=== PATIENT | male | born 1980 | race Caucasian/White ===

== ENCOUNTER 2023-03-13 07:51 | Outpatient (CLI) | payer BC, SELFPAY | END 2023-03-13 07:52 | disposition home or self-care (01) | LOC: NFLDREF 14:44 | PROVIDERS: PCP Family Medicine; Referring Provider Family Medicine; Visit Provider Family Medicine | DX: Z00.00 Encounter for general adult medical examination without abnormal findings (principal); Z13.220 Encounter for screening for lipoid disorders; F41.9 Anxiety disorder, unspecified; Z13.9 Encounter for screening, unspecified; Z13.6 Encounter for screening for cardiovascular disorders | CPT/HCPCS: 80053; 80061; 84443 ==

== ENCOUNTER 2023-04-09 07:05 | Outpatient (CLI) | payer BC, SELFPAY ==
--- NOTE | 2023-04-09 07:15 | CRLHL7_ITS ---
For Patients: As a result of the Century Cures Act, medical imaging exams and procedure reports are released immediately into your electronic medical record. You may view this report before your referring provider. If you have questions, please contact your health care provider. INDICATION: right testicular pain COMPARISON: none TECHNIQUE: Park scale imaging was performed of the scrotum. In addition color Doppler and spectral Doppler analysis was performed of the testes. FINDINGS: The testes demonstrate normal arterial and venous blood flow on color Doppler and spectral Doppler analysis. The testes have uniform echogenicity with no evidence of a suspicious mass or area of inflammation. The right testis measures 5.6 x 2.5 x 3.7 cm in size and the left testis measures 5.1 x 2.3 x 3.6 cm. Right epididymal head cyst measures 9 x 9 x 14 millimeters. Normal left epididymis. There is no evidence of a hydrocele or varicocele. IMPRESSION: Normal ultrasound of the testicles. 1.4 cm right epididymal head cyst. Dictated by Олег Ibarra MD @ 04/09/2023 11:23:28 AM (Electronically Signed)
== END 2023-04-09 07:06 | disposition home or self-care (01) ==
LOC: US 07:07
PROVIDERS: PCP Family Medicine; Visit Provider Family Medicine
DX: N50.811 Right testicular pain (principal); N50.3 Cyst of epididymis
CPT/HCPCS: 76870; 93976

== ENCOUNTER 2024-06-23 20:51 | Outpatient (CLI) | payer BC, SELFPAY ==
--- NOTE | 2024-07-01 08:21 | W.PM.SLEEP ---
Sleep Study Details Details Interpreting Provider: José Luis Date of Sleep Study: 06/23/24 Sleep Study Details: STUDY TYPE:? Hospital-based attended ? BMI:? 25.9 ORDERING PROVIDER:? Mario INDICATION:? Concerned about sleep apnea ? SLEEP SUMMARY:? 377 minutes total sleep time RESPIRATORY SUMMARY:? Me oxygen awake 95 asleep 94 minimum 91 AHI 11, supine AHI 16.4, nonsupine 4.0 Supine REM AHI 19.5 PERIODIC LIMB MOVEMENTS OF SLEEP:? Index 6.5, index with arousal 0.2 CARDIAC:? Awake 74, asleep 62. No arrhythmias noted IMPRESSION:? Mild obstructive sleep apnea overall was moderate apnea in supine sleep and supine REM sleep RECOMMENDATION: Treatment options include CPAP dental appliance and/or airway expansion surgery.
== END 2024-06-23 20:52 | disposition home or self-care (01) ==
LOC: SLEEP 20:52
PROVIDERS: PCP Family Medicine; Visit Provider Otolaryngology
DX: G47.33 Obstructive sleep apnea (adult) (pediatric) (principal)
CPT/HCPCS: 95810

== ENCOUNTER 2024-07-13 07:33 | Outpatient (CLI) | payer BC, SELFPAY | END 2024-07-13 07:34 | disposition home or self-care (01) | LOC: NFLDREF 07-15 00:45 | PROVIDERS: PCP Family Medicine; Referring Provider Family Medicine; Visit Provider Family Medicine | DX: E78.5 Hyperlipidemia, unspecified (principal) | CPT/HCPCS: 80053; 80061 ==